=== PATIENT | male | born 1955 | race African-American/Black ===

== ENCOUNTER 2017-04-01 17:07 | Emergency (ER) | payer MEDICARE, MEDICAID ==
[~2017-04-01] VITALS: Ht 185.4 cm; Wt 81.0 kg
[~2017-04-01 17:07] MED LIST: HCTZ; NORVASC; UNK MEDS
[2017-04-01] MEDS ORDERED: KETOROLAC 60MG/2ML VIAL IM STA (17:38)
[2017-04-01] MEDS ORDERED: CLONIDINE 0.1MG TABLET PO ONE (17:45)
[2017-04-01 18:02] LABS: BASOPHILS % 0.6 % (0.0-2.0); EOSINOPHILS % 0.8 % (0.0-5.0); HEMATOCRIT. 39.6 % (42.0-52.0); HEMOGLOBIN. 12.8 g/dL (14.0-18.0); LYMPHOCYTES % 24.5 % (20.0-50.0); MEAN CORPUSCULAR HEMOGLOBIN 27.8 pg (28.0-32.0); MEAN CORPUSCULAR VOLUME 85.8 fL (80.0-94.0); MONOCYTES % 6.8 % (2.0-8.0); NEUTROPHILS % 67.3 % (40.0-76.0); PLATELET 158 x1000/uL (130-400); RED BLOOD CELL COUNT 4.61 mill/uL (4.7-6.1); RED CELL DISTRIBUTION WIDTH 14.1 % (11.6-14.6)
[2017-04-01 18:03] LABS: CHLORIDE 109 mEq/L (98-107)
[2017-04-01 18:05] LABS: INR 1.1; PROTHROMBIN TIME 11.3 sec
[2017-04-01 18:09] LABS: CARBON DIOXIDE 25 mEq/L (21-32)
[2017-04-01 20:46] VITALS: BP 167/108
== END 2017-04-01 20:47 | disposition home or self-care (01) ==
LOC: ER 18:06
DX: M54.5 Low back pain (principal); I12.9 Hypertensive chronic kidney disease with stage 1 through stage 4 chronic kidney disease, or unspecified chronic kidney disease; N18.9 Chronic kidney disease, unspecified; Z86.73 Personal history of transient ischemic attack (TIA), and cerebral infarction without residual deficits; Z90.49 Acquired absence of other specified parts of digestive tract; Z98.890 Other specified postprocedural states
CPT/HCPCS: 36415; 80053; 85025; 85610; 93005; 96372; 99285; J1885

== ENCOUNTER 2017-08-15 14:35 | Inpatient (IN) | payer MEDICARE, MEDICAID ==
[~2017-08-15] VITALS: Ht 185.4 cm; Wt 80.3 kg
[2017-08-15] MEDS ORDERED: NITROGLYCERIN OINT 1GM/INCH UDPKT TD STA (17:15)
[2017-08-15] MEDS ORDERED: ASPIRIN 81MG TABLET PO STA (17:15)
[2017-08-15] MEDS ORDERED: FUROSEMIDE 40MG/4ML VIAL IV STA (17:15)
[2017-08-15] MEDS ORDERED: CLONIDINE 0.2MG TABLET PO ONE (17:30)
[2017-08-15 17:47] LABS: BASOPHILS % 0.9 % (0.0-2.0); EOSINOPHILS % 0.9 % (0.0-5.0); HEMATOCRIT. 39.5 % (42.0-52.0); HEMOGLOBIN. 12.7 g/dL (14.0-18.0); LYMPHOCYTES % 18.6 % (20.0-50.0); MEAN CORPUSCULAR HEMOGLOBIN 28.3 pg (28.0-32.0); MEAN CORPUSCULAR VOLUME 87.7 fL (80.0-94.0); MEAN PLATELET VOLUME 9.9 fl (7.4-10.4); MONOCYTES % 6.7 % (2.0-8.0); NEUTROPHILS % 72.9 % (40.0-76.0); PLATELET 156 x1000/uL (130-400); RED CELL DISTRIBUTION WIDTH 15.6 % (11.6-14.6)
[2017-08-15 17:53] LABS: INR 1.3; PROTHROMBIN TIME 13.1 sec (9.4-11.6)
[2017-08-15 17:55] LABS: CARBON DIOXIDE 25 mEq/L (21-32); CHLORIDE 110 mEq/L (98-107)
[2017-08-15] MEDS ORDERED: MAGNESIUM/ALUMINUM HYDROXIDE/SIMETHICONE 30ML UDC PO PRN (19:15)
[2017-08-15] MEDS ORDERED: NA PHOS,M-B/NA PHOS,DI-BA ENEMA 118ML PR PRN (19:15)
[2017-08-15] MEDS ORDERED: GUAIFENESIN 200MG/10ML SUGAR FREE UDC PO PRN (19:15)
[2017-08-15] MEDS ORDERED: DIPHENHYDRAMINE 50MG/ML VIAL IV PRN (19:15)
[2017-08-15] MEDS ORDERED: DOCUSATE SODIUM 100MG CAPSULE PO PRN (19:15)
[2017-08-15] MEDS ORDERED: ONDANSETRON HCL 4MG/2ML VIAL IV PRN (19:15)
[2017-08-15] MEDS ORDERED: LORAZEPAM 2MG/ML CPJ IV PRN (19:15)
[2017-08-15] MEDS ORDERED: TRAMADOL 50MG TABLET PO PRN (19:15)
[2017-08-15] MEDS ORDERED: IPRATROPIUM/ALBUTEROL 0.5-3(2.5)MG/3ML NEB INH PRN (19:15)
[2017-08-15] MEDS ORDERED: CLONIDINE 0.1MG TABLET PO PRN (19:15)
[2017-08-15] MEDS ORDERED: MORPHINE SULFATE 2 MG/ML CPJ (NOT FOR IM USE) IV PRN (19:15)
[2017-08-15] MEDS ORDERED: NITROGLYCERIN 0.4MG TABLET SL SL PRN (19:15)
[2017-08-15] MEDS ORDERED: ACETAMINOPHEN 325MG TABLET PO PRN (19:15)
[2017-08-15 23:26] VITALS: BP 166/120
[2017-08-15] MEDS ORDERED: METOLAZONE 2.5MG TABLET PO NR (23:41)
[2017-08-15] MEDS ORDERED: ZOLPIDEM TARTRATE 5MG TABLET PO PRN (23:44)
[2017-08-16] MEDS: FAMOTIDINE 20MG/2ML VIAL IV SCH ×2 (00:52→20:36)
[2017-08-16] MEDS: ENOXAPARIN 30MG/0.3ML SYR SUBCUT SCH ×2 (00:52→20:36)
[2017-08-16] MEDS: FUROSEMIDE 40MG/4ML VIAL IVP SCH ×3 (00:52→20:36)
[2017-08-16] MEDS: ATORVASTATIN CALCIUM 10MG TABLET PO SCH ×2 (00:53→20:36)
[2017-08-16] MEDS: SPIRONOLACTONE 25MG TABLET PO SCH ×3 (00:53→20:37)
[2017-08-16 01:18] LABS: TROPONIN I 0.1 ng/mL (0.00-0.04)
[2017-08-16 04:35] VITALS: BP 149/105
[2017-08-16] MEDS: CARVEDILOL 3.125 MG TABLET PO SCH ×2 (05:38→18:25)
[2017-08-16 07:47] VITALS: BP 169/124
[2017-08-16 08:00] VITALS: BP 169/124
[2017-08-16] MEDS: ASPIRIN 325MG EC TABLET PO SCH (09:24)
[2017-08-16] MEDS: AMLODIPINE 10MG TABLET PO SCH (09:25)
[2017-08-16 10:09] LABS: CREATINE KINASE MB FRACTION 1.4 ng/mL (0.5-3.6); TROPONIN I 0.09 ng/mL (0.00-0.04)
[2017-08-16] MEDS: LOSARTAN POTASSIUM 25 MG TABLET PO SCH (11:44)
[2017-08-16 12:00] VITALS: BP 127/97
[2017-08-16 12:16] LABS: HEMATOCRIT 36.5 % (42.0-52.0); HEMOGLOBIN 12.1 g/dL (14.0-18.0); MEAN CORPUSCULAR HEMOGLOBIN 28.7 pg (28.0-32.0); MEAN CORPUSCULAR VOLUME 86.7 fL (80.0-94.0); PLATELET 151 x1000/uL (130-400); RED BLOOD CELL COUNT 4.21 mill/uL (4.7-6.1); RED CELL DISTRIBUTION WIDTH 15.7 % (11.6-14.6)
[2017-08-16 12:37] LABS: CARBON DIOXIDE 30 mEq/L (21-32); CHLORIDE 107 mEq/L (98-107)
[2017-08-16 16:25] VITALS: BP 97/50
[2017-08-16] MEDS: DUTASTERIDE 0.5MG CAPSULE PO SCH (18:25)
[2017-08-16 20:00] VITALS: BP 112/73
[2017-08-16] MEDS: TAMSULOSIN HCL 0.4MG SR CAPSULE PO SCH (20:37)
[2017-08-17] VITALS (7 sets, daily range): BP systolic 87–149; BP diastolic 59–108
[2017-08-17] MEDS: CARVEDILOL 3.125 MG TABLET PO SCH ×2 (06:31→17:09)
[2017-08-17] MEDS: ASPIRIN 325MG EC TABLET PO SCH (09:47)
[2017-08-17] MEDS: TAMSULOSIN HCL 0.4MG SR CAPSULE PO SCH ×2 (09:47→20:57)
[2017-08-17] MEDS: LOSARTAN POTASSIUM 25 MG TABLET PO SCH (09:47)
[2017-08-17] MEDS: FUROSEMIDE 40MG/4ML VIAL IVP SCH ×2 (09:47→20:57)
[2017-08-17] MEDS: AMLODIPINE 10MG TABLET PO SCH (09:47)
[2017-08-17] MEDS: DUTASTERIDE 0.5MG CAPSULE PO SCH (09:47)
[2017-08-17] MEDS: SPIRONOLACTONE 25MG TABLET PO SCH ×2 (09:48→20:57)
[2017-08-17] MEDS: POTASSIUM CHLORIDE 20MEQ TABLET SR PO SCH (10:32)
[2017-08-17] MEDS: FAMOTIDINE 20MG/2ML VIAL IV SCH (20:51)
[2017-08-17] MEDS: ENOXAPARIN 30MG/0.3ML SYR SUBCUT SCH (20:51)
[2017-08-17] MEDS: ATORVASTATIN CALCIUM 10MG TABLET PO SCH (20:51)
[2017-08-18] VITALS: BP 114/82
[2017-08-18 04:00] VITALS: BP 106/78
[2017-08-18] MEDS: CARVEDILOL 3.125 MG TABLET PO SCH ×2 (05:09→18:00)
[2017-08-18 08:00] VITALS: BP 135/98
[2017-08-18] MEDS: LOSARTAN POTASSIUM 25 MG TABLET PO SCH (08:51)
[2017-08-18] MEDS: TAMSULOSIN HCL 0.4MG SR CAPSULE PO SCH ×2 (08:51→20:36)
[2017-08-18] MEDS: SPIRONOLACTONE 25MG TABLET PO SCH ×2 (08:51→20:37)
[2017-08-18] MEDS: DUTASTERIDE 0.5MG CAPSULE PO SCH (08:51)
[2017-08-18] MEDS: POTASSIUM CHLORIDE 20MEQ TABLET SR PO SCH (08:52)
[2017-08-18] MEDS: AMLODIPINE 10MG TABLET PO SCH (08:52)
[2017-08-18] MEDS: ASPIRIN 325MG EC TABLET PO SCH (08:52)
[2017-08-18] MEDS: FUROSEMIDE 40MG/4ML VIAL IVP SCH ×2 (08:52→20:36)
[2017-08-18 11:20] LABS: CREATININE URINE (RAW) 69.2 mg/dl
[2017-08-18 12:00] VITALS: BP 125/90
[2017-08-18] MEDS: SODIUM CHL 0.45% + KCL 20MEQ/L 1,000 ML IV SCH (13:09)
[2017-08-18 16:00] VITALS: BP 99/67
[2017-08-18 20:00] VITALS: BP 114/78
[2017-08-18] MEDS: FAMOTIDINE 20MG/2ML VIAL IV SCH (20:36)
[2017-08-18] MEDS: ATORVASTATIN CALCIUM 10MG TABLET PO SCH (20:36)
[2017-08-18] MEDS: ENOXAPARIN 30MG/0.3ML SYR SUBCUT SCH (20:37)
[2017-08-19] VITALS: BP 119/71
[2017-08-19 08:00] VITALS: BP 139/97
[2017-08-19] MEDS: SPIRONOLACTONE 25MG TABLET PO SCH (09:00)
[2017-08-19] MEDS: LOSARTAN POTASSIUM 25 MG TABLET PO SCH (09:00)
[2017-08-19] MEDS: TAMSULOSIN HCL 0.4MG SR CAPSULE PO SCH (09:00)
[2017-08-19] MEDS: POTASSIUM CHLORIDE 20MEQ TABLET SR PO SCH (09:00)
[2017-08-19] MEDS: ASPIRIN 325MG EC TABLET PO SCH (09:01)
[2017-08-19] MEDS: DUTASTERIDE 0.5MG CAPSULE PO SCH (09:01)
[2017-08-19] MEDS: FUROSEMIDE 40MG/4ML VIAL IVP SCH (09:01)
[2017-08-19] MEDS: AMLODIPINE 10MG TABLET PO SCH (10:03)
[2017-08-19 12:00] VITALS: BP 120/83
[2017-08-19] MEDS: SODIUM CHL 0.45% + KCL 20MEQ/L 1,000 ML IV SCH (12:30)
[2017-08-19 14:39] VITALS: BP 108/72
== END 2017-08-19 15:35 | disposition home or self-care (01) | DRG 291 ==
LOC: ER 15:09 → EDBEDREQ 18:57 → EDBEDREQTM 18:57 → SUPCPDRO 19:02 → 6WST 19:08 → ENRESERV 19:59
PROVIDERS: ADMIT Internal Medicine; ATTEND Internal Medicine
DX: I13.0 Hypertensive heart and chronic kidney disease with heart failure and stage 1 through stage 4 chronic kidney disease, or unspecified chronic kidney disease (principal); I50.43 Acute on chronic combined systolic (congestive) and diastolic (congestive) heart failure; N17.0 Acute kidney failure with tubular necrosis; E46 Unspecified protein-calorie malnutrition; E11.22 Type 2 diabetes mellitus with diabetic chronic kidney disease; E11.51 Type 2 diabetes mellitus with diabetic peripheral angiopathy without gangrene; D64.9 Anemia, unspecified; E78.00 Pure hypercholesterolemia, unspecified; E87.6 Hypokalemia; I25.10 Atherosclerotic heart disease of native coronary artery without angina pectoris; I27.21 Secondary pulmonary arterial hypertension; N18.9 Chronic kidney disease, unspecified; N40.1 Benign prostatic hyperplasia with lower urinary tract symptoms; R33.8 Other retention of urine; Z79.899 Other long term (current) drug therapy; I25.2 Old myocardial infarction; Z82.49 Family history of ischemic heart disease and other diseases of the circulatory system; Z83.3 Family history of diabetes mellitus; Z86.73 Personal history of transient ischemic attack (TIA), and cerebral infarction without residual deficits; Z87.891 Personal history of nicotine dependence; Z90.49 Acquired absence of other specified parts of digestive tract; D63.8 Anemia in other chronic diseases classified elsewhere
CPT/HCPCS: 36415; 71010; 76770; 80048; 80053; 80061; 82550; 82553; 82575; 82607; 82746; 83036; 83880; 84156; 84484; 85025; 85027; 85610; 85730; 93005; 93306; 93923; 93970; 96374; 97110; 97116; 97161; 97166; 97530; 99285; J1650; J1940; J3480; J3490; A4315

== ENCOUNTER 2017-09-05 06:17 | Emergency (ER) | payer MEDICARE, MEDICAID ==
[~2017-09-05] VITALS: Ht 190.5 cm; Wt 100.0 kg
[2017-09-05] MEDS ORDERED: KETOROLAC 60MG/2ML VIAL IM ONE (06:30)
[2017-09-05] MEDS ORDERED: NITROFURANTOIN 100MG M/M CAPSULE PO ONE (06:30)
[2017-09-05] MEDS ORDERED: TAMSULOSIN HCL 0.4MG SR CAPSULE PO ONE (06:30)
[2017-09-05 07:45] VITALS: BP 151/100
[2017-09-05 08:01] LABS: GLUCOSE URINE NEGATIVE (NEGATIVE); KETONES URINE NEGATIVE (NEGATIVE); LEUKOCYTE ESTERASE URINE 3+ (NEGATIVE); NITRITE URINE POSITIVE (NEGATIVE); OCCULT BLOOD URINE 3+ (NEGATIVE); PROTEIN URINE 3+ (NEGATIVE); SPECIFIC GRAVITY URINE 1.019 (1.005-1.030); UROBILINOGEN URINE 0.2 E.U./dL (0.2-1.0)
[2017-09-05 08:02] LABS: CLARITY URINE CLOUDY (CLEAR); COLOR URINE YELLOW (YELLOW)
== END 2017-09-05 08:26 | disposition home or self-care (01) ==
LOC: ER 06:20
DX: Z46.6 Encounter for fitting and adjustment of urinary device (principal); N39.0 Urinary tract infection, site not specified; I10 Essential (primary) hypertension; N40.1 Benign prostatic hyperplasia with lower urinary tract symptoms; R33.8 Other retention of urine; Z90.49 Acquired absence of other specified parts of digestive tract
CPT/HCPCS: 51702; 81001; 87077; 87086; 87186; 96372; 99284; J1885; A4315